=== PATIENT | male | born 1965 | race Caucasian/White ===

== ENCOUNTER 2018-12-24 18:07 | Emergency (ER) | payer SELFPAY ==
[~2018-12-24] VITALS: Ht 154.9 cm; Wt 113.4 kg
[2018-12-24 18:14] VITALS: BP 159/96
--- NOTE | 2018-12-24 18:14 | NUR ---
C/O LT ANKLE PAIN. PT DIAGNOSED WITH ANKLE FX AT [facility] IN [place]. PT REPORTS THAT HE FELL ON ANKLE TODAY. SHARP PAIN AT 7/10. +CMS DISTAL TO LT ANKLE, PT REPORTS NUMBNESS IN [place]. VSS. ER MD TO SEE PT. MEDHX:HTN RX:LISINOPRIL
--- NOTE | 2018-12-24 18:18 | NUR ---
Patient to bed 6. RN evaluating patient at bedside.
--- NOTE | 2018-12-24 18:35 | NUR ---
X RAY AT BEDSIDE.
[2018-12-24] MEDS ORDERED: ACETAMINOPHEN EXTRA STRENGTH 500 MG TAB PO ONE (18:50)
--- NOTE | 2018-12-24 19:08 | NUR ---
Pt report given to TASHA TY. Transfer of care at this time.
[2018-12-24 19:26] VITALS: BP 159/96
--- NOTE | 2018-12-24 19:26 | NUR ---
Patient discharged with v/s stable. Written and verbal after care instructions given and explained. Patient alert, oriented and verbalized understanding of instructions. Ambulatory with crutches and steady gait. All questions addressed prior to discharge. ID band removed. Patient advised to follow up with PMD. Rx of IBUPROFEN, NORCO, AND LISINOPRIL WAS given. Patient educated on indication of medication including possible reaction and side effects. Opportunity to ask questions provided and answered.
== END 2018-12-24 19:26 | disposition home or self-care (01) ==
LOC: MED 18:07
DX: S82.62XA Displaced fracture of lateral malleolus of left fibula, initial encounter for closed fracture (principal); I10 Essential (primary) hypertension; F17.210 Nicotine dependence, cigarettes, uncomplicated; Z76.0 Encounter for issue of repeat prescription; W18.39XA Other fall on same level, initial encounter; Y92.89 Other specified places as the place of occurrence of the external cause; Y93.89 Activity, other specified; Y99.8 Other external cause status
CPT/HCPCS: 73610; 99283; Q0092

== ENCOUNTER 2023-04-07 10:38 | Emergency (ER) | payer MEDICAID, OTHER ==
[~2023-04-07] VITALS: Ht 182.9 cm; Wt 86.2 kg
[2023-04-07 11:13] VITALS: BP 149/91; PULSE 83; RESP 18; TEMP 97; O2SAT 98
[2023-04-07] MEDS ORDERED: HYDROcodone/APAP 5/325 MG 1 TAB TAB PO ONE (12:15)
[2023-04-07 13:20] LABS: APPEARANCE,URINE CLEAR (CLEAR); BILIRUBIN,URINE NEGATIVE (NEGATIVE); BLOOD, URINE NEGATIVE (NEGATIVE); COLOR,URINE YELLOW (YELLOW); LEUKOCYTE ESTERASE ,URINE NEGATIVE (NEGATIVE); NITRITE, URINE NEGATIVE (NEGATIVE); PROTEIN,URINE TRACE (NEGATIVE); UGLUCOSE NEGATIVE (NEGATIVE)
[2023-04-07 13:28] LABS: BACTERIA,URINE OCCASSIONAL /HPF (None Seen); RBC,URINE 0-5 /HPF (0-5); SQUAMOUS EPITHELIAL CELL,UR 0-3 (FEW) /LPF (0-3 (FEW)); WBC,URINE 0-5 /HPF (0-5)
[2023-04-07] MEDS ORDERED: ACET-8905 PO (13:57)
[2023-04-07] MEDS ORDERED: DICL100G32 TP (13:57)
[2023-04-07] MEDS ORDERED: LID5T TP (13:57)
[2023-04-07 14:03] VITALS: BP 135/80; PULSE 79; RESP 13; TEMP 98; O2SAT 99
== END 2023-04-07 14:03 | disposition home or self-care (01) ==
LOC: MED 10:38
DX: S39.012A Strain of muscle, fascia and tendon of lower back, initial encounter (principal); X58.XXXA Exposure to other specified factors, initial encounter; Y93.89 Activity, other specified; Y92.89 Other specified places as the place of occurrence of the external cause; Y99.8 Other external cause status
CPT/HCPCS: 81001; 99283